=== PATIENT | male | born 1950 | race Caucasian/White ===

== ENCOUNTER 2024-09-14 09:37 | Day surgery (SDC) | payer MEDICARE, BC ==
[2024-09-10 13:33] LABS: BASOPHILS % (AUTO) 0.2 % (0-1); EOSINOPHILS # (AUTO) 0.1 X10'3 (0-0.9); EOSINOPHILS % (AUTO) 1.3 % (0-6); HEMATOCRIT 46.6 % (42.0-52.0); HEMOGLOBIN 15.9 g/dl (14.0-17.9); LYMPHOCYTES # (AUTO) 1.1 X10'3 (1.1-4.8); LYMPHOCYTES % (AUTO) 12.1 % (21-51); MEAN CORPUSCULAR HEMOGLOBIN 31.2 PG (27.0-31.0); MEAN CORPUSCULAR HGB CONC 34.2 g/dL (33.0-36.5); MEAN CORPUSCULAR VOLUME 91.5 FL (78-98); MEAN PLATELET VOLUME 9.3 FL (7.4-10.4); MONOCYTES # (AUTO) 0.9 X10'3 (0-0.9); MONOCYTES % (AUTO) 10.3 % (2-12); NEUTROPHILS # (AUTO) 6.8 X10'3 (1.8-7.7); NEUTROPHILS % (AUTO) 76.1 % (42-75); PLATELET COUNT 138 X10'3 (140-440); RED BLOOD COUNT 5.09 X10'6 (4.70-6.10); RED CELL DISTRIBUTION WIDTH 13.8 % (11.5-14.5)
[2024-09-10 13:42] LABS: APTT 24 SECONDS (22-32); INR 1.1 INR
[2024-09-10 13:43] LABS: ALBUMIN 3.9 G/DL (3.4-5.0); ANION GAP 5 (8-16); BLOOD UREA NITROGEN 30 MG/DL (7-18); BUN/CREATININE RATIO 27.5 (10.0-20.0); CALCIUM 9.2 MG/DL (8.5-10.1); CHLORIDE 104 MMOL/L (99-107); CHOL/HDL RATIO 2.2 (0.00-4.99); CHOLESTEROL 105 MG/DL (0-200); CREATININE 1.09 MG/DL (0.60-1.10); GLUCOSE 201 MG/DL (70-104); HDL CHOLESTEROL 47 MG/DL (35-60); LDL CHOLESTEROL 44 MG/DL (50-100); POTASSIUM 4.1 MMOL/L (3.5-5.1); SODIUM 141 MMOL/L (135-145); TOTAL CARBON DIOXIDE 32.5 MMOL/L (24-32); TRIGLYCERIDES 104 MG/DL (20-135); eGFR 66 ML/MIN
[2024-09-14] VITALS (7 sets, daily range): BP systolic 106–136; BP diastolic 54–82; PULSE 47–63; RESP 16; TEMP 97.2; O2SAT 94–99
[~2024-09-14] VITALS: Ht 170.2 cm; Wt 63.5 kg
[2024-09-14] MEDS ORDERED: normal saline 1,000 ML IV SCH (09:50)
[2024-09-14] MEDS ORDERED: diphenhydrAMINE 25mg capsule PO PRN (09:50)
[2024-09-14] MEDS ORDERED: LORazepam 0.5 MG tablet PO PRN (09:50)
[2024-09-14] MEDS ORDERED: ATOR40TA72 PO (10:33)
[2024-09-14] MEDS ORDERED: NITR0.4T48 SL (10:33)
[2024-09-14] MEDS ORDERED: LATA2.5D14 EACHEYE (10:33)
[2024-09-14] MEDS ORDERED: METO-395 PO (10:33)
[2024-09-14] MEDS ORDERED: DORZ10DR10 EACHEYE (10:33)
[2024-09-14] MEDS ORDERED: FLO0.4C PO (10:33)
[2024-09-14] MEDS ORDERED: AMLO5TAB16 PO (10:33)
[2024-09-14] MEDS ORDERED: LIDOcaine 1% (10mg/ml) 2ml vial ONE (10:39)
[2024-09-14] MEDS ORDERED: midazolam 1 mg/ML 2ml injection ONE (10:39)
[2024-09-14] MEDS ORDERED: verapamil 2.5 mg/ml inj IV ONE (10:39)
[2024-09-14] MEDS ORDERED: ASPI-611 PO (10:39)
[2024-09-14] MEDS ORDERED: fentaNYL/PF 50MCG/1 ML 2ML syringe ONE (10:39)
[2024-09-14] MEDS ORDERED: iohexol 350MG/ML 100ml bottle IV ONE (10:40)
[2024-09-14] MEDS ORDERED: heparin 1,000unit/ml 10ml vial 10 ML ONE (10:40)
[2024-09-14] MEDS ORDERED: CALC500T63 PO (10:41)
[2024-09-14] MEDS ORDERED: nitroGLYCERIN 500mcg/5mL D5W 5 ML IV ONE (10:44)
[2024-09-14] MEDS ORDERED: MULT-1085 PO (10:53)
== END 2024-09-14 14:45 | disposition home or self-care (01) ==
LOC: SSTAY O 09:37
PROVIDERS: ATTEND Student in an Organized Health Care Education/Training Program
DX: R94.39 Abnormal result of other cardiovascular function study (principal); I25.118 Atherosclerotic heart disease of native coronary artery with other forms of angina pectoris; R07.9 Chest pain, unspecified; E78.5 Hyperlipidemia, unspecified; I10 Essential (primary) hypertension; E11.9 Type 2 diabetes mellitus without complications; Z79.899 Other long term (current) drug therapy
CPT/HCPCS: 36415; 80048; 80061; 82948; 85025; 85610; 85730; 93005; 93458; 99152; 99153; A6258; A6402; C1894; J1644; J2003; J2250; J3010; J3490; J7030; Q9967; Z7610

== ENCOUNTER 2024-09-30 10:06 | Inpatient (IN) | payer MEDICARE, BC ==
[2024-09-28] MEDS: albuterol 2.5 MG/3 ML nebule NEB ONE (13:10)
[2024-09-28 14:16] LABS: ABG BASE EXCESS -2.9 mmol/L (-2.0-3.0); ABG HCO3 19.3 mmol/L (21.0-28.0); ABG OXYGEN SATURATION 97.4 % (94.0-98.0); ABG PH (T) 7.456 (7.350-7.450); ABG PO2 (T) 97.5 mmHg (83.0-108.0); ALLEN'S TEST POSITIVE; FCOHb 0.3 % (0.5-1.5); FHHb 2.6 % (0.0-5.0); FMetHb 0.3 % (0.0-1.5); FO2Hb 96.8 % (94.0-98.0)
[2024-09-28 14:39] LABS: BILIRUBIN,URINE NEGATIVE (Neg); CLARITY,URINE CLEAR (Clear); COLOR,URINE YELLOW (Yellow); GLUCOSE, URINE NEGATIVE (Neg); KETONES,URINE NEGATIVE (Neg); LEUKOCYTE ESTERASE ,URINE NEGATIVE (Neg); NITRITES, URINE NEGATIVE (Neg); OCCULT BLOOD,URINE NEGATIVE (Neg); PH,URINE 6.5 (4.8-8.0); PROTEIN,URINE NEGATIVE (Neg); UROBILINOGEN,URINE 0.2 E.U/dL (0.2-1.0)
[2024-09-28 14:41] LABS: UA COLLECTION TYPE NON-SPECIFIED
[2024-09-28 14:46] LABS: BASOPHILS % (AUTO) 0.4 % (0-1); EOSINOPHILS # (AUTO) 0.2 X10'3 (0-0.9); EOSINOPHILS % (AUTO) 3.8 % (0-6); LYMPHOCYTES # (AUTO) 1.3 X10'3 (1.1-4.8); LYMPHOCYTES % (AUTO) 22.3 % (21-51); MEAN CORPUSCULAR HEMOGLOBIN 31.2 PG (27.0-31.0); MEAN CORPUSCULAR VOLUME 91.6 FL (78-98); MEAN PLATELET VOLUME 9.4 FL (7.4-10.4); MONOCYTES # (AUTO) 0.7 X10'3 (0-0.9); MONOCYTES % (AUTO) 12.2 % (2-12); NEUTROPHILS # (AUTO) 3.6 X10'3 (1.8-7.7); NEUTROPHILS % (AUTO) 61.3 % (42-75); PRE OP HEMATOCRIT 47.5 % (42.0-52.0); PRE OP HEMOGLOBIN 16.2 g/dL (14.0-17.9); PRE OP PLATELET COUNT 145 X10'3 (140-440); PRE OP WHITE BLOOD COUNT 5.9 10'3 (4.8-10.8); RED BLOOD COUNT 5.19 X10'6 (4.70-6.10); RED CELL DISTRIBUTION WIDTH 13.3 % (11.5-14.5)
[2024-09-28 14:53] LABS: PRE OP PROTIME 10.7 SECONDS (9.0-12.0)
[2024-09-28 14:56] LABS: ALBUMIN 3.8 G/DL (3.4-5.0); ALKALINE PHOSPHATASE 76 IU/L (46-116); BLOOD UREA NITROGEN 23 MG/DL (7-18); BUN/CREATININE RATIO 23.5 (10.0-20.0); CALCIUM 8.8 MG/DL (8.5-10.1); CHLORIDE 106 MMOL/L (99-107); CREATININE 0.98 MG/DL (0.60-1.10); PRE OP ALT 29 U/L (30-65); PRE OP ANION GAP 5 (8-16); PRE OP AST 19 U/L (10-37); PRE OP BILIRUB, TOTAL 0.4 MG/DL (0.0-1.0); PRE OP GLUCOSE 152 MG/DL (70-104); PRE OP POTASSIUM 3.6 MMOL/L (3.4-5.1); PRE OP SODIUM 141 MMOL/L (135-145); TOTAL CARBON DIOXIDE 30.3 MMOL/L (24-32); TOTAL PROTEIN 7.8 G/DL (6.4-8.2); eGFR 75 ML/MIN
[2024-09-28 15:13] LABS: LARGE PLATELETS FEW; PLATELET ESTIMATE NORMAL
[2024-09-28 15:22] LABS: HEMOGLOBIN A1C 6.5 % (4.5-6.2)
[2024-09-30] VITALS (18 sets, daily range): BP systolic 96–150; BP diastolic 45–91; PULSE 62–89; RESP 12–16; TEMP 97.8; O2SAT 96–99
[~2024-09-30] VITALS: Ht 170.2 cm; Wt 64.1 kg
[2024-09-30] MEDS: LORazepam 1 MG tablet PO ONE (05:30)
[2024-09-30] MEDS: ceFAZolin 2gm in dextrose, iso 50 ML IV ONE (05:30)
[2024-09-30] MEDS: Insulin Reg/NS 100units/100mL 100 ML IV SCH ×2 (05:30→20:17)
[2024-09-30] MEDS: DOCUMENT DATE & TIME OF BETA-BLOCKER PO ONE (05:30)
[~2024-09-30 10:06] MED LIST: AMLO5TAB16 PO; ASPI-611 PO; ATOR40TA72 PO; DORZ10DR10 EACHEYE; FLO0.4C PO; LATA2.5D14 EACHEYE; METO-395 PO; dextrose 50%-water 50ml dispensing syringe IV PRN; insulin glargine (Lantus) pen - multi-dose SQ PRN
[2024-09-30] MEDS: famotidine 20mg tablet PO ONE (10:54)
[2024-09-30] MEDS: metoprolol tartrate 12.5mg (1/2 tablet) PO ONE (10:55)
[2024-09-30] MEDS: vancomycin/NS 1 GM ADD-VANTAGE 250 ML IV ONE (10:55)
[2024-09-30] MEDS: mupirocin 2% nasal ointment 1gm UD NS ONE (10:56)
[2024-09-30] MEDS: ringers solution, lacted 1,000 ML IV SCH (10:56)
[2024-09-30] MEDS ORDERED: ceFAZolin 1000mg inj ONE (13:16)
[2024-09-30] MEDS ORDERED: epiNEPHrine 1 mg/ml inj ONE (13:16)
[2024-09-30] MEDS ORDERED: ROPIVAcaine 0.5% (5mg/ml) 30ml vial ONE (13:16)
[2024-09-30] MEDS ORDERED: vancomycin 1,000mg inj ONE (13:18)
[2024-09-30] MEDS: ceFAZolin 1000mg inj IR ONE (14:30)
[2024-09-30] MEDS ORDERED: isoflurane 100ml inhalation liquid IH ONE (15:15)
[2024-09-30] MEDS ORDERED: LORazepam 2 mg/ml vial ONE (15:15)
[2024-09-30] MEDS ORDERED: midazolam 1 mg/ML 2ml injection ONE (15:16)
[2024-09-30] MEDS ORDERED: SUfentanil 50mcg/ml 1ml amp IV ONE (15:18)
[2024-09-30] MEDS ORDERED: rocuronium 10mg/ml inj IV ONE ×2 (15:21→18:18)
[2024-09-30] MEDS ORDERED: propofol inj 20 ML IV ONE (15:21)
[2024-09-30 15:51] LABS: ABG BASE EXCESS -1.1 mmol/L (-2.0-3.0); ABG HCO3 21.4 mmol/L (21.0-28.0); ABG OXYGEN SATURATION 99.3 % (94.0-98.0); ABG PCO2 30.2 mmHg (35.0-48.0); ABG PH 7.469 (7.350-7.450); ABG PO2 226.8 mmHg (83.0-108.0); CL (ABG) 108 mmol/L (98-107); FCOHb 0.1 % (0.5-1.5); FHHb 0.7 % (0.0-5.0); FMetHb 0.1 % (0.0-1.5); FO2Hb 99.1 % (94.0-98.0); GLUCOSE (ABG) 116 mg/dl (65-95); IONIZED CA (ABG) 1.18 mmol/L (1.15-1.33); K (ABG) 3.5 mmol/L (3.40-4.50); TOTAL HEMOGLOBIN 14.5 G/dl (13.5-17.5)
[2024-09-30] MEDS: papaverine 30 mg/ml 2ml inj. IA ONE (16:39)
[2024-09-30 16:59] LABS: ABG BASE EXCESS -1.2 mmol/L (-2.0-3.0); ABG HCO3 22.3 mmol/L (21.0-28.0); ABG OXYGEN SATURATION 99.3 % (94.0-98.0); ABG PCO2 32.7 mmHg (35.0-48.0); ABG PH 7.452 (7.350-7.450); CL (ABG) 104 mmol/L (98-107); FCOHb 0.3 % (0.5-1.5); FHHb 0.7 % (0.0-5.0); FMetHb 0.1 % (0.0-1.5); FO2Hb 98.9 % (94.0-98.0); GLUCOSE (ABG) 119 mg/dl (65-95); IONIZED CA (ABG) 0.97 mmol/L (1.15-1.33); K (ABG) 3.5 mmol/L (3.40-4.50); TOTAL HEMOGLOBIN 9.8 G/dl (13.5-17.5)
[2024-09-30 17:21] LABS: ABG BASE EXCESS VENOUS -1.3 mmol/L (-2.0-3.0); ABG HCO3 VENOUS 24.4 mmol/L (22.0-29.0); ABG OXYGEN SATURATION VENOUS 85.2 % (60.0-85.0); ABG PCO2 VENOUS 45.2 mmHg (38.0-54.0); ABG PO2 VENOUS 51.2 mmHg (23.0-48.0); CL (ABG) 103 mmol/L (98-107); FCOHb VENOUS 0.3 % (0.5-1.5); FHHb VENOUS 14.7 %; FMetHb VENOUS 0.3 % (0.5-1.5); FO2Hb VENOUS 84.7 % (0-80.0); GLUCOSE (ABG) 120 mg/dl (65-95); IONIZED CA (ABG) 1.01 mmol/L (1.15-1.33); K (ABG) 3.9 mmol/L (3.40-4.50); TOTAL HEMOGLOBIN 10.4 G/dl (13.5-17.5)
[2024-09-30 17:41] LABS: ABG BASE EXCESS 0.2 mmol/L (-2.0-3.0); ABG HCO3 25.4 mmol/L (21.0-28.0); ABG OXYGEN SATURATION 99.4 % (94.0-98.0); ABG PCO2 43.6 mmHg (35.0-48.0); ABG PH 7.383 (7.350-7.450); CL (ABG) 104 mmol/L (98-107); FCOHb 0.3 % (0.5-1.5); FHHb 0.6 % (0.0-5.0); FMetHb 0.3 % (0.0-1.5); FO2Hb 98.8 % (94.0-98.0); GLUCOSE (ABG) 129 mg/dl (65-95); IONIZED CA (ABG) 1.03 mmol/L (1.15-1.33); K (ABG) 3.8 mmol/L (3.40-4.50); TOTAL HEMOGLOBIN 10.9 G/dl (13.5-17.5)
[2024-09-30 18:10] LABS: ABG BASE EXCESS -2.5 mmol/L (-2.0-3.0); ABG HCO3 21.2 mmol/L (21.0-28.0); ABG OXYGEN SATURATION 99.1 % (94.0-98.0); ABG PCO2 32.7 mmHg (35.0-48.0); ABG PO2 281.2 mmHg (83.0-108.0); CL (ABG) 104 mmol/L (98-107); FCOHb 0.3 % (0.5-1.5); FHHb 0.9 % (0.0-5.0); FMetHb 0.3 % (0.0-1.5); FO2Hb 98.5 % (94.0-98.0); GLUCOSE (ABG) 113 mg/dl (65-95); IONIZED CA (ABG) 1.27 mmol/L (1.15-1.33); K (ABG) 3.6 mmol/L (3.40-4.50); TOTAL HEMOGLOBIN 10.5 G/dl (13.5-17.5)
[2024-09-30] MEDS ORDERED: ipratropium/albuterol 3ml nebule IH PRN (18:10)
[2024-09-30 18:14] LABS: ACTIVATED CLOTTING TIME 123 SEC (101-148)
[2024-09-30] MEDS ORDERED: potassium Cl 40MEQ/270ML bag 250 ML IV PRN (18:40)
[2024-09-30] MEDS ORDERED: metoclopramide 5 mg/ml inj IV PRN (18:40)
[2024-09-30] MEDS ORDERED: insulin glargine (Lantus) pen - multi-dose SQ PRN (18:40)
[2024-09-30] MEDS ORDERED: mineral oil 133ml enema RC PRN (18:40)
[2024-09-30] MEDS ORDERED: ondansetron/PF 4mg/2ml inj IV PRN (18:40)
[2024-09-30] MEDS ORDERED: dextrose 50%-water 50ml dispensing syringe IV PRN (18:40)
[2024-09-30] MEDS ORDERED: potassium CL 10mEq/100ml bag 100 ML IV PRN (18:40)
[2024-09-30] MEDS ORDERED: morphine 4 MG/ML inj SYRINge IV PRN (18:40)
[2024-09-30] MEDS ORDERED: niCARDipine-NS 40mg/200ml IVPB 200 ML IV PRN (18:40)
[2024-09-30] MEDS ORDERED: acetaminophen 325mg tablet PO PRN (18:40)
[2024-09-30] MEDS ORDERED: magnesium sulf-water 4G/100mL 100 ML IV PRN (18:40)
[2024-09-30] MEDS ORDERED: sodium phosphate inj. 15 MMOL in normal saline 250ml IV soln 250 ML IV PRN (18:40)
[2024-09-30 19:07] LABS: BASOPHILS % (AUTO) 0.2 % (0-1); EOSINOPHILS # (AUTO) 0.1 X10'3 (0-0.9); EOSINOPHILS % (AUTO) 0.7 % (0-6); HEMATOCRIT 33.8 % (42.0-52.0); HEMOGLOBIN 11.4 g/dl (14.0-17.9); LYMPHOCYTES # (AUTO) 0.6 X10'3 (1.1-4.8); LYMPHOCYTES % (AUTO) 5.6 % (21-51); MEAN CORPUSCULAR HEMOGLOBIN 31.2 PG (27.0-31.0); MEAN CORPUSCULAR HGB CONC 33.8 g/dL (33.0-36.5); MEAN CORPUSCULAR VOLUME 92.5 FL (78-98); MEAN PLATELET VOLUME 9.5 FL (7.4-10.4); MONOCYTES # (AUTO) 0.9 X10'3 (0-0.9); MONOCYTES % (AUTO) 8.6 % (2-12); NEUTROPHILS # (AUTO) 8.8 X10'3 (1.8-7.7); NEUTROPHILS % (AUTO) 84.9 % (42-75); PLATELET COUNT 70 X10'3 (140-440); RED BLOOD COUNT 3.66 X10'6 (4.70-6.10); RED CELL DISTRIBUTION WIDTH 13.4 % (11.5-14.5); WHITE BLOOD COUNT 10.4 X10'3 (4.5-11.0)
[2024-09-30] MEDS: sodium chloride 0.45% 1,000 ML IV SCH (19:16)
[2024-09-30] MEDS: albumin (Human) 5% 250ml 250 ML IV PRN (19:17)
[2024-09-30 19:20] LABS: INR 1.3 INR; PROTHROMBIN TIME 13.3 SECONDS (9.0-12.0)
[2024-09-30 19:23] LABS: ABG BASE EXCESS -2.7 mmol/L (-2.0-3.0); ABG HCO3 21.1 mmol/L (21.0-28.0); ABG OXYGEN SATURATION 99.2 % (94.0-98.0); ABG PCO2 (T) 31.6 mmHg (35.0-48.0); ABG PH (T) 7.437 (7.350-7.450); ABG PO2 (T) 173.1 mmHg (83.0-108.0); FCOHb 0.4 % (0.5-1.5); FHHb 0.8 % (0.0-5.0); FMetHb 0.3 % (0.0-1.5); FO2Hb 98.5 % (94.0-98.0); MODE VENT - SIMV; PATIENT TEMPERATURE 35.7; PEEP 5 cm H2O; RESPIRATORY RATE 12 b/min; TIDAL VOLUME 500 mL; TOTAL HEMOGLOBIN 12.6 G/dl (13.5-17.5)
[2024-09-30 19:23] LABS: ALANINE AMINOTRANSFERASE 21 U/L (12-78); ALBUMIN 2.5 G/DL (3.4-5.0); ALBUMIN/GLOBULIN RATIO 1.3 (1.1-1.5); ALKALINE PHOSPHATASE 35 IU/L (46-116); ANION GAP 9 (8-16); APTT 26 SECONDS (22-32); ASPARTATE AMINO TRANSFERASE 27 U/L (10-37); BILIRUBIN,TOTAL 0.5 MG/DL (0.1-1.0); BLOOD UREA NITROGEN 18 MG/DL (7-18); BUN/CREATININE RATIO 20.9 (10.0-20.0); CALCIUM 7.5 MG/DL (8.5-10.1); CHLORIDE 112 MMOL/L (99-107); CREATININE 0.86 MG/DL (0.60-1.10); GLUCOSE 107 MG/DL (70-104); MAGNESIUM 2.3 MG/DL (1.5-2.4); PHOSPHORUS 1.5 MG/DL (2.3-4.5); POTASSIUM 3.3 MMOL/L (3.5-5.1); SODIUM 146 MMOL/L (135-145); TOTAL CARBON DIOXIDE 25.2 MMOL/L (24-32); TOTAL PROTEIN 4.5 G/DL (6.4-8.2); eCRCL 67 ML/MIN; eGFR 87 ML/MIN
[2024-09-30] MEDS: nitroGLYCERIN-Tridil 50MG/D5W 250 ML IV SCH (19:23)
[2024-09-30] MEDS: potassium Cl 20mEq/100mL bag 100 ML IV PRN (19:52)
[2024-09-30] MEDS: magnesium sulf-water 2g/50mL 50 ML IV PRN (19:53)
[2024-09-30] MEDS: sennosides/docusate sodium tablet PO SCH (20:00)
[2024-09-30] MEDS: atorvastatin 10mg tablet PO SCH (20:11)
[2024-09-30] MEDS: vancomycin/NS 1 GM ADD-VANTAGE 250 ML IV SCH (20:11)
[2024-09-30] MEDS: mupirocin 2% nasal ointment 1gm UD NS SCH (20:11)
[2024-09-30] MEDS: sodium phosphate inj. 30 MMOL in normal saline 250ml IV soln 250 ML IV PRN (20:45)
[2024-09-30] MEDS: morphine 2 MG/ML inj. syringe IV PRN (20:46)
[2024-09-30] MEDS: ceFAZolin/D5W- 1GM premix 50 ML IV SCH (23:08)
[2024-10-01] VITALS (29 sets, daily range): BP systolic 94–144; BP diastolic 43–77; PULSE 69–90; RESP 13–28; O2SAT 91–98
[2024-10-01 01:06] LABS: ABG BASE EXCESS -6.8 mmol/L (-2.0-3.0); ABG HCO3 18.2 mmol/L (21.0-28.0); ABG OXYGEN SATURATION 97.3 % (94.0-98.0); ABG PCO2 (T) 34.1 mmHg (35.0-48.0); ABG PH (T) 7.342 (7.350-7.450); ABG PO2 (T) 98.7 mmHg (83.0-108.0); FHHb 2.7 % (0.0-5.0); FMetHb 0.3 % (0.0-1.5); MODE VENT - CPAP; PATIENT TEMPERATURE 36.7; TOTAL HEMOGLOBIN 11.9 G/dl (13.5-17.5)
[2024-10-01 02:18] LABS: BASOPHILS % (AUTO) 0 % (0-1); EOSINOPHILS % (AUTO) 0 % (0-6); HEMATOCRIT 33.7 % (42.0-52.0); HEMOGLOBIN 11.2 g/dl (14.0-17.9); LYMPHOCYTES # (AUTO) 0.3 X10'3 (1.1-4.8); LYMPHOCYTES % (AUTO) 2.5 % (21-51); MEAN CORPUSCULAR HEMOGLOBIN 30.7 PG (27.0-31.0); MEAN CORPUSCULAR HGB CONC 33.4 g/dL (33.0-36.5); MEAN CORPUSCULAR VOLUME 92.1 FL (78-98); MEAN PLATELET VOLUME 9.6 FL (7.4-10.4); MONOCYTES # (AUTO) 0.7 X10'3 (0-0.9); MONOCYTES % (AUTO) 5.2 % (2-12); NEUTROPHILS # (AUTO) 12.3 X10'3 (1.8-7.7); NEUTROPHILS % (AUTO) 92.3 % (42-75); PLATELET COUNT 80 X10'3 (140-440); RED BLOOD COUNT 3.66 X10'6 (4.70-6.10); RED CELL DISTRIBUTION WIDTH 13.5 % (11.5-14.5); WHITE BLOOD COUNT 13.3 X10'3 (4.5-11.0)
[2024-10-01 02:51] LABS: ALANINE AMINOTRANSFERASE 22 U/L (12-78); ALBUMIN 3.7 G/DL (3.4-5.0); ALBUMIN/GLOBULIN RATIO 1.7 (1.1-1.5); ALKALINE PHOSPHATASE 36 IU/L (46-116); ANION GAP 14 (8-16); ASPARTATE AMINO TRANSFERASE 30 U/L (10-37); BILIRUBIN,TOTAL 0.8 MG/DL (0.1-1.0); BLOOD UREA NITROGEN 18 MG/DL (7-18); BUN/CREATININE RATIO 14.1 (10.0-20.0); CALCIUM 7.9 MG/DL (8.5-10.1); CHLORIDE 112 MMOL/L (99-107); CREATININE 1.28 MG/DL (0.60-1.10); GLUCOSE 178 MG/DL (70-104); MAGNESIUM 2.3 MG/DL (1.5-2.4); PHOSPHORUS 3.6 MG/DL (2.3-4.5); POTASSIUM 3.9 MMOL/L (3.5-5.1); SODIUM 147 MMOL/L (135-145); TOTAL CARBON DIOXIDE 20.9 MMOL/L (24-32); TOTAL PROTEIN 5.9 G/DL (6.4-8.2); eCRCL 45 ML/MIN; eGFR 55 ML/MIN
[2024-10-01 03:04] LABS: APTT 27 SECONDS (22-32); INR 1.2 INR; PROTHROMBIN TIME 12.3 SECONDS (9.0-12.0)
[2024-10-01] MEDS: aspirin 81mg tab.chew PO SCH (07:34)
[2024-10-01] MEDS: metoprolol tartrate 12.5mg (1/2 tablet) PO SCH (08:00)
[2024-10-01] MEDS: tamsulosin 0.4mg capsule PO SCH (08:30)
[2024-10-01] MEDS: dorzolamide/timolol (Cosopt) ophthalmic drops 10ml bottle EACHEYE SCH (09:19)
[2024-10-01] MEDS: latanoprost 0.005% 2.5ml ophthalmic drops EACHEYE SCH (09:19)
[2024-10-01 10:41] LABS: ABG PO2 496.1 mmHg (83.0-108.0)
[2024-10-01 10:41] LABS: ABG PO2 438.2 mmHg (83.0-108.0)
[2024-10-01] MEDS ORDERED: dextrose 50%-water 50ml dispensing syringe IV PRN ×2 (13:35)
[2024-10-01] MEDS ORDERED: DEXTROSE 15 GM of carb/4 tabs (each vial/BOTTLE has 4 tablets) PO PRN ×2 (13:35)
[2024-10-01] MEDS ORDERED: glucagon, human recombinant 1mg kit SUBCUT PRN (13:35)
[2024-10-01] MEDS: HYDROcodone/acetaminophen 10/325mg tab PO PRN ×2 (14:04→23:17)
[2024-10-01] MEDS: INSULIN LISPRO 100 UNIT/ML INSULN.PEN MULTI-DOSE SQ SCH (18:57)
[2024-10-02] VITALS (20 sets, daily range): BP systolic 109–150; BP diastolic 66–90; PULSE 72–115; RESP 15–27; TEMP 97.5–98; O2SAT 94–98
[2024-10-02 02:37] LABS: BASOPHILS % (AUTO) 0 % (0-1); EOSINOPHILS % (AUTO) 0 % (0-6); HEMATOCRIT 32.8 % (42.0-52.0); LYMPHOCYTES # (AUTO) 0.5 X10'3 (1.1-4.8); MEAN CORPUSCULAR HGB CONC 33.6 g/dL (33.0-36.5); MONOCYTES # (AUTO) 2.4 X10'3 (0-0.9); NEUTROPHILS % (AUTO) 86.5 % (42-75); RED BLOOD COUNT 3.56 X10'6 (4.70-6.10); RED CELL DISTRIBUTION WIDTH 13.9 % (11.5-14.5)
[2024-10-02 02:40] LABS: LYMPHOCYTES % (AUTO) 2.4 % (21-51); MEAN CORPUSCULAR HEMOGLOBIN 30.9 PG (27.0-31.0); MEAN CORPUSCULAR VOLUME 92.1 FL (78-98); MEAN PLATELET VOLUME 10.3 FL (7.4-10.4); MONOCYTES % (AUTO) 11.1 % (2-12); NEUTROPHILS # (AUTO) 18.8 X10'3 (1.8-7.7); PLATELET COUNT 66 X10'3 (140-440); WHITE BLOOD COUNT 21.8 X10'3 (4.5-11.0)
[2024-10-02 02:48] LABS: ALBUMIN 3.4 G/DL (3.4-5.0); ANION GAP 6 (8-16); BLOOD UREA NITROGEN 23 MG/DL (7-18); BUN/CREATININE RATIO 26.4 (10.0-20.0); CALCIUM 8.4 MG/DL (8.5-10.1); CHLORIDE 107 MMOL/L (99-107); CREATININE 0.87 MG/DL (0.60-1.10); GLUCOSE 233 MG/DL (70-104); MAGNESIUM 2.2 MG/DL (1.5-2.4); POTASSIUM 4.5 MMOL/L (3.5-5.1); SODIUM 141 MMOL/L (135-145); TOTAL CARBON DIOXIDE 27.8 MMOL/L (24-32); eCRCL 67 ML/MIN; eGFR 86 ML/MIN
[2024-10-02] MEDS: pantoprazole 40mg Tablet.DR PO SCH (07:29)
[2024-10-02] MEDS: metoprolol tartrate 12.5mg (1/2 tablet) PO ONE (09:47)
[2024-10-02] MEDS: furosemide 40mg/4ml inj IV ONE (10:35)
[2024-10-02] MEDS: albumin (Human) 5% 250ml 250 ML IV ONE (12:54)
[2024-10-02] MEDS: magnesium hydroxide 30ml (MOM) UD suspension PO PRN (14:28)
[2024-10-02] MEDS: metoprolol tartrate 25mg tablet PO SCH (19:49)
[2024-10-02] MEDS: heparin, porcine 5000 units/ml vial SQ SCH (19:55)
[2024-10-03] VITALS (9 sets, daily range): BP systolic 115–157; BP diastolic 68–93; PULSE 88–112; RESP 16–26; TEMP 97.1–98.5; O2SAT 94–98
[2024-10-03 04:00] LABS: ALBUMIN 3.2 G/DL (3.4-5.0); ANION GAP 4 (8-16); BLOOD UREA NITROGEN 30 MG/DL (7-18); BUN/CREATININE RATIO 42.9 (10.0-20.0); CALCIUM 8.6 MG/DL (8.5-10.1); CHLORIDE 104 MMOL/L (99-107); GLUCOSE 229 MG/DL (70-104); MAGNESIUM 1.9 MG/DL (1.5-2.4); PHOSPHORUS 1.8 MG/DL (2.3-4.5); SODIUM 140 MMOL/L (135-145); TOTAL CARBON DIOXIDE 31.8 MMOL/L (24-32); eCRCL 83 ML/MIN; eGFR > 90 ML/MIN
[2024-10-03] MEDS: bisacodyl 10mg suppository rectal RC PRN (05:31)
[2024-10-03 07:02] LABS: EOSINOPHILS % (AUTO) 0 % (0-6); HEMOGLOBIN 11.9 g/dl (14.0-17.9); MONOCYTES # (AUTO) 2.3 X10'3 (0-0.9); PLATELET COUNT 63 X10'3 (140-440)
[2024-10-03 07:04] LABS: BASOPHILS % (AUTO) 0 % (0-1); HEMATOCRIT 36.1 % (42.0-52.0); LYMPHOCYTES # (AUTO) 1.5 X10'3 (1.1-4.8); LYMPHOCYTES % (AUTO) 7.8 % (21-51); MEAN CORPUSCULAR HEMOGLOBIN 30.6 PG (27.0-31.0); MEAN CORPUSCULAR HGB CONC 33.1 g/dL (33.0-36.5); MEAN CORPUSCULAR VOLUME 92.5 FL (78-98); MEAN PLATELET VOLUME 9.9 FL (7.4-10.4); MONOCYTES % (AUTO) 11.8 % (2-12); NEUTROPHILS # (AUTO) 15.6 X10'3 (1.8-7.7); NEUTROPHILS % (AUTO) 80.4 % (42-75); RED CELL DISTRIBUTION WIDTH 13.8 % (11.5-14.5); WHITE BLOOD COUNT 19.4 X10'3 (4.5-11.0)
[2024-10-03] MEDS: Neutra Phos packet PO PRN (07:55)
[2024-10-03] MEDS: insulin glargine (Lantus) pen - multi-dose SQ SCH (20:33)
[2024-10-03] MEDS: metoprolol tartrate 50mg tablet PO SCH (20:55)
[2024-10-04] VITALS (7 sets, daily range): BP systolic 103–168; BP diastolic 60–89; PULSE 74–97; RESP 16–26; TEMP 97.4–99.2; O2SAT 93–96
[2024-10-04 07:46] LABS: BASOPHILS % (AUTO) 0 % (0-1); EOSINOPHILS % (AUTO) 0.1 % (0-6); HEMATOCRIT 32.8 % (42.0-52.0); HEMOGLOBIN 10.8 g/dl (14.0-17.9); LYMPHOCYTES # (AUTO) 1.2 X10'3 (1.1-4.8); LYMPHOCYTES % (AUTO) 8.9 % (21-51); MEAN CORPUSCULAR HEMOGLOBIN 30.5 PG (27.0-31.0); MEAN CORPUSCULAR HGB CONC 33.1 g/dL (33.0-36.5); MEAN CORPUSCULAR VOLUME 92.4 FL (78-98); MEAN PLATELET VOLUME 10.2 FL (7.4-10.4); MONOCYTES # (AUTO) 1.6 X10'3 (0-0.9); MONOCYTES % (AUTO) 12.6 % (2-12); NEUTROPHILS # (AUTO) 10.2 X10'3 (1.8-7.7); NEUTROPHILS % (AUTO) 78.4 % (42-75); PLATELET COUNT 62 X10'3 (140-440); RED BLOOD COUNT 3.55 X10'6 (4.70-6.10); RED CELL DISTRIBUTION WIDTH 13.7 % (11.5-14.5); WHITE BLOOD COUNT 13.1 X10'3 (4.5-11.0)
[2024-10-04 08:09] LABS: ALBUMIN 2.8 G/DL (3.4-5.0); ANION GAP 9 (8-16); BLOOD UREA NITROGEN 23 MG/DL (7-18); BUN/CREATININE RATIO 31.5 (10.0-20.0); CALCIUM 8.4 MG/DL (8.5-10.1); CHLORIDE 103 MMOL/L (99-107); CREATININE 0.73 MG/DL (0.60-1.10); GLUCOSE 187 MG/DL (70-104); MAGNESIUM 1.9 MG/DL (1.5-2.4); PHOSPHORUS 2.5 MG/DL (2.3-4.5); POTASSIUM 3.4 MMOL/L (3.5-5.1); SODIUM 141 MMOL/L (135-145); TOTAL CARBON DIOXIDE 28.8 MMOL/L (24-32); eCRCL 79 ML/MIN; eGFR > 90 ML/MIN
[2024-10-04] MEDS: acetaminophen 325mg tablet PO PRN (08:41)
[2024-10-04] MEDS: potassium Cl 40MEQ/1/2NS 520ml 520 ML IV PRN (12:39)
[2024-10-04] MEDS: JUVEN Smoothie Arginine/Glut./Ca2+Bmb (Juven 19.3pkt) 240ml cup PO SCH (18:00)
[2024-10-04] MEDS ORDERED: HYDR-3972 PO (18:24)
[2024-10-04] MEDS ORDERED: METF-436 PO (18:24)
[2024-10-04] MEDS ORDERED: METO50TA16 PO (18:24)
[2024-10-05 02:00] VITALS: BP 128/76; PULSE 87; RESP 21; TEMP 97.1; O2SAT 95
[2024-10-05 06:00] VITALS: BP 136/81; PULSE 76; RESP 17; TEMP 98.1; O2SAT 99
[2024-10-05 07:14] LABS: BASOPHILS % (AUTO) 0.1 % (0-1); EOSINOPHILS # (AUTO) 0.1 X10'3 (0-0.9); HEMATOCRIT 32.5 % (42.0-52.0); HEMOGLOBIN 10.8 g/dl (14.0-17.9); LYMPHOCYTES # (AUTO) 1.4 X10'3 (1.1-4.8); LYMPHOCYTES % (AUTO) 12.9 % (21-51); MEAN CORPUSCULAR HEMOGLOBIN 30.9 PG (27.0-31.0); MEAN CORPUSCULAR HGB CONC 33.2 g/dL (33.0-36.5); MEAN CORPUSCULAR VOLUME 92.9 FL (78-98); MEAN PLATELET VOLUME 10.9 FL (7.4-10.4); MONOCYTES # (AUTO) 1.6 X10'3 (0-0.9); MONOCYTES % (AUTO) 15.1 % (2-12); NEUTROPHILS # (AUTO) 7.5 X10'3 (1.8-7.7); NEUTROPHILS % (AUTO) 70.9 % (42-75); PLATELET COUNT 83 X10'3 (140-440); RED CELL DISTRIBUTION WIDTH 13.5 % (11.5-14.5); WHITE BLOOD COUNT 10.6 X10'3 (4.5-11.0)
[2024-10-05 07:58] VITALS: BP_SYST 136; PULSE 76
[2024-10-05 08:07] LABS: ALANINE AMINOTRANSFERASE 49 U/L (12-78); ALBUMIN 2.5 G/DL (3.4-5.0); ALBUMIN/GLOBULIN RATIO 0.8 (1.1-1.5); ALKALINE PHOSPHATASE 71 IU/L (46-116); ANION GAP 7 (8-16); ASPARTATE AMINO TRANSFERASE 37 U/L (10-37); BILIRUBIN,TOTAL 0.6 MG/DL (0.1-1.0); BLOOD UREA NITROGEN 19 MG/DL (7-18); BUN/CREATININE RATIO 24.7 (10.0-20.0); CALCIUM 8.5 MG/DL (8.5-10.1); CHLORIDE 107 MMOL/L (99-107); CREATININE 0.77 MG/DL (0.60-1.10); GLUCOSE 146 MG/DL (70-104); MAGNESIUM 1.9 MG/DL (1.5-2.4); PHOSPHORUS 2.8 MG/DL (2.3-4.5); POTASSIUM 3.8 MMOL/L (3.5-5.1); SODIUM 141 MMOL/L (135-145); TOTAL CARBON DIOXIDE 26.6 MMOL/L (24-32); TOTAL PROTEIN 5.8 G/DL (6.4-8.2); eCRCL 75 ML/MIN; eGFR > 90 ML/MIN
[2024-10-05] MEDS: potassium Cl 20 mEq SR tablet PO PRN (09:27)
[2024-10-05 10:26] LABS: ACT @ 1.70 U 273 SEC (193-297); ACT @ 2.84 U 357 SEC (260-420); BASELINE ACT 131 SEC (101-148); PATIENT WEIGHT 65.0k KG
== END 2024-10-05 11:30 | disposition home health service (06) | DRG 235 ==
LOC: PAS IN 10:06 → CICU 2S 17:30 → PCU 3S 10-02 16:41
PROVIDERS: ADMIT Thoracic Surgery (Cardiothoracic Vascular Surgery); ATTEND Thoracic Surgery (Cardiothoracic Vascular Surgery)
PROC: 06BP4ZZ Excision of Right Saphenous Vein, Percutaneous Endoscopic Approach (ICD-10-PCS; 2024-09-30)
PROC: 02100Z9 Bypass Coronary Artery, One Artery from Left Internal Mammary, Open Approach (ICD-10-PCS; 2024-09-30)
PROC: 5A1221Z Performance of Cardiac Output, Continuous (ICD-10-PCS; 2024-09-30)
PROC: B24BZZ4 Ultrasonography of Heart with Aorta, Transesophageal (ICD-10-PCS; 2024-09-30)
PROC: 05HY33Z Insertion of Infusion Device into Upper Vein, Percutaneous Approach (ICD-10-PCS; 2024-09-30)
PROC: 021109W Bypass Coronary Artery, Two Arteries from Aorta with Autologous Venous Tissue, Open Approach (ICD-10-PCS; principal; 2024-09-30 15:15)
DX: I25.10 Atherosclerotic heart disease of native coronary artery without angina pectoris (principal); N17.0 Acute kidney failure with tubular necrosis; I10 Essential (primary) hypertension; D69.6 Thrombocytopenia, unspecified; E78.5 Hyperlipidemia, unspecified; E87.70 Fluid overload, unspecified
CPT/HCPCS: 36415; 36600; 71045; 71046; 80048; 80053; 81003; 82330; 82435; 82803; 82947; 82948; 83036; 83735; 84100; 84132; 84295; 84484; 85008; 85018; 85025; 85347; 85610; 85730; 86885; 86900; 86901; 86920; 87070; 87081; 93005; 93312; 93325; 93970; 94002; 94003; 94010; 94640; 94668; 94760; 97116; 97161; 97530; A4615; A4618; A6213; A6258; A6449; A7000; A7048; C1751; G0378; J0171; J0665; J0690; J1644; J1815; J1940; J2003; J2060; J2150; J2250; J2270; J2440; J2704; J2720; J2795; J2919; J3370; J3480; J3490; J7030; J7040; J7050; J7120; P9045; P9047

== ENCOUNTER 2024-10-19 12:20 | Day surgery (SDC) | payer MEDICARE, BC ==
[~2024-10-19 12:20] MED LIST changes: -AMLO5TAB16 PO; -FLO0.4C PO; +HYDR-3972 PO; +METF-436 PO; -METO-395 PO; +METO50TA16 PO; +TAMS-55 PO; -dextrose 50%-water 50ml dispensing syringe IV PRN; -insulin glargine (Lantus) pen - multi-dose SQ PRN
--- NOTE | 2024-10-19 12:38 | RADIOLOGY REPORT ---
EXAM: DI CHEST,SINGLE VIEW Indication: LT PLEURAL EFFUSION S/P CABG Technique: Single frontal view of the chest was obtained Comparison: DI CHEST,SINGLE VIEW on DOS: 10/03/24, DI CHEST,SINGLE VIEW on DOS: 10/02/24, DI CHEST,SING LE VIEW on DOS: 10/01/24, DI CHEST,SINGLE VIEW on DOS: 09/30/24 FINDINGS: Lines and Tubes: None Lungs: Moderate left pleural effusion and left basilar opacity. Cardiomediastinal contours: Obscured. Bones: No acute osseous abnormality. IMPRESSION: Moderate left pleural effusion and left basilar opacity.
[2024-10-19 12:50] VITALS: BP 153/88; PULSE 81; RESP 16; TEMP 98; O2SAT 96
[2024-10-19] MEDS ORDERED: METO-395 PO (12:54)
[2024-10-19] MEDS ORDERED: METF-1203 PO (12:56)
[2024-10-19 13:16] VITALS: BP 141/80; PULSE 74; RESP 14; O2SAT 96
[2024-10-19 13:45] VITALS: BP 142/84; PULSE 76; RESP 16; O2SAT 97
[2024-10-19 14:00] VITALS: BP 134/82; PULSE 72; RESP 16; O2SAT 97
--- NOTE | 2024-10-19 14:33 | RADIOLOGY REPORT ---
EXAM: DI CHEST,SINGLE VIEW TECHNIQUE: Single frontal chest radiograph CLINICAL HISTORY: S/P THORA COMPARISON: DI CHEST,SINGLE VIEW on DOS: 10/19/24, DI CHEST,SINGLE VIEW on DOS: 10/03/24, DI CHEST,SINGL E VIEW on DOS: 10/02/24 Findings/Impression: Frontal chest radiograph demonstrates no acute osseous or superficial soft tissue abnormalities. The trachea is midline. The cardiac silhouette and mediastinum are within normal limits. Small residual left pleural effusion with compressive atelectasis. A superimposed infectious process is not excluded. No definite pneumothorax.
--- NOTE | 2024-10-19 15:19 | PROCEDURE NOTE- Residance ---
Procedure Note Providers to CC CC: GRICEL CRUZ, RES ~ Planned Procedure Right sided thoracentesis Indications shortness of breath Survey Supervisor Gricel Cruz - Resident, suprvised by Dr. Miller Type of Anesthesia Lidocaine 1% Informed Consent During the informed consent discussion regarding the procedure, or treatment, I explained the following to the patient: a. Nature of the procedure or treatment and who will perform the procedure or treatment. b. Necessity for procedure and the possible benefits. c. Risks and complications (most common and serious). d. Alternative treatments and the risks, benefits and side effects of each (including no treatment). e. Likelihood of the patient achieving his/her goals without this procedure and surgery treatment. f. Problems that might occur during the recuperation. Description A time out was performed and the chest x-ray was reviewed, the appropriate side was confirmed and marked. My hands were washed immediately prior to the procedure. I wore a surgical cap, mask with protective eyewear, sterile gown and sterile gloves throughout the procedure. The patient was prepped and draped in a sterile manner using chlorhexidine scrub after the appropriate level was percussed and confirmed by ultrasound. 1% lidocaine was used to anesthesize the skin, subcutaneous tissue, superior aspect of the rib periosteum and parietal pleura. A finder needle was then introduced over the superior aspect of the rib to locate the pleural fluid; _ colored fluid was aspirated at a depth of approximately _ cm. A 10-blade scalpel was used to gabriel the skin at the in sertion site. The [id number]-[id number] needle was then introduced through the skin incision into the pleural space using negative aspiration pressure and the red colormetric indicator to confirm appropriate positioning of the needle. The thoracentesis catheter was then threaded without difficulty. 1000 ml of Serosanguinous fluid was removed without difficulty. The catheter was then removed. No immediate complications were noted during the procedure. A post- procedure chest x-ray done, showed no pneumothorax. Estimated blood loss is 0.1 cc. Estimated Blood Loss very minimal; 0.1 cc Complication none X-Ray Findings Frontal chest radiograph demonstrates no acute osseous or superficial soft tissu e abnormalities. The trachea is midline. The cardiac silhouette and mediastinum are within normal limits. Small residual left pleural effusion with compressive atelectasis. A superimposed infectious process is not excluded. No definite pneumothorax. Date of Service: Oct 19, 2024 Billing Provider: MIGUEL MILLER MD, SHAMS, RES Oct 19, 2024 15:19
--- NOTE | 2024-10-19 15:38 | RADIOLOGY REPORT ---
PROCEDURE: ULTRASOUND GUIDED THORACENTESIS USING TEMPORARY CATHETER HISTORY: 74 Male with sob requiring thoracentesis. DOCUMENTATION: Informed consent was obtained and a procedural time out was performed. TECHNIQUE: Ultrasound was used to locate the LEFT pleural fluid collection with an image archived in the PACS. The skin over the LEFT posterior hemithorax was sterilely prepped, draped, and infiltrated with 1% lidocaine. Under real time ultrasound guidance, the LEFT pleural space was accessed with a 19-gauge Yueh needle and connected to Vacutainers. The Yueh catheter was advanced, the needle was rem brennon and the temporary catheter was advanced and connected to the Vacutainer. Approximately 1 liters of straw colored fluid was removed. The temporary catheter was removed and sterile dressings were ap plied. FINDINGS: Ultrasound demonstrates a moderate left pleural effusion. Imaging confirms the needle tip within the fluid. IMPRESSION: SUCCESSFUL ULTRASOUND GUIDED THORACENTESIS. Proccedure by Dr. Lawson
== END 2024-10-19 14:15 | disposition home or self-care (01) ==
LOC: SSTAY O 12:20
PROVIDERS: ATTEND Physician Assistant Surgical
DX: J90 Pleural effusion, not elsewhere classified (principal); I25.2 Old myocardial infarction; I25.10 Atherosclerotic heart disease of native coronary artery without angina pectoris; Z79.899 Other long term (current) drug therapy
CPT/HCPCS: 32555; 71045; C1729; Z7610

== ENCOUNTER 2024-11-25 11:29 | Outpatient (CLI) | payer MEDICARE, BC ==
[~2024-11-25 11:29] MED LIST changes: -HYDR-3972 PO; +METF-1203 PO; -METF-436 PO; +METO-395 PO; -METO50TA16 PO
--- NOTE | 2024-11-25 16:05 | CONSULTATION ---
DATE OF CONSULTATION: 11/25/2024 DICTATING PHYSICIAN: Val Ramsey M.S., [facility] [employer] MODIFIED BARIUM SWALLOW STUDY REPORT REFERRING PHYSICIAN: Anuj Marie MD. HISTORY OF PRESENT ILLNESS: The patient is a 74-year-old male and consents to this evaluation. The patient's was present for this evaluation. History obtained from the patient, the patient's , and medical records. The patient has a history of signs and symptoms of dysphagia including coughing on food, liquid, and saliva. He reports that this has been occurring for several years. He had a modified barium swallow study conducted in the past and he was provided dietary recommendations at that time such as limiting dairy intake. The patient recently had a triple bypass and has been attending cardiac rehab. He recently had a choking episode in the evening where he was not able to catch his breath. The patient tends to have a harder time with items such as nuts. CURRENT DIET: In terms of caffeine, the patient has one cup of coffee on a daily basis. He does not utilize tobacco products or drink alcohol. He has chocolate every other day and he has dairy on a daily basis in the form of premiere protein shakes or ice cream. The patient does not avoid any foods at this time and is on a regular texture thin liquid diet. MEDICATIONS: Metoprolol 100 mg b.i.d., tamsulosin 0.4 mg once daily orally, metformin 500 mg b.i.d., aspirin 81 mg once daily orally, latanoprost ophthalmic 0.005% once daily, atorvastatin 40 mg once daily orally, Dorzolamide/timolol 2% two drops daily. PARAMETERS: The patient is seated in a lateral 90-degree view and administered the usual protocol of thin and nectar thick liquids, puree and solid consistencies as well as self-regulated boluses of thin liquids from a cup. RESULTS: In the oral stage of the swallow, oral transit is characterized by mildly reduced lingual strength. There is a mild oral residue following the initial swallow of the boluses. In the pharyngeal stage of the swallow, swallow initiation is within functional limits with the exception of 1/2 of the trials for the 3 mL thin liquid bolus, in which that slipped out of the oral cavity early. Tongue base retraction is mild to moderately reduced. Anterior movement of the posterior pharyngeal wall is observed. Elevation of the hyothyroid complex is accomplishedwith mildly reduced epiglottic inversion. There is a mild pharyngeal residue for the majority of the boluses; however, with the self-regulated bolus of thin liquid from a cup and the 5 mL thin liquid, there is a mild to moderate residue. The patient was not noted to utilize any secondary swallows for the thin or thick boluses. In terms of airway safety, the patient demonstrated with vidal aspiration for 1 out of 2 of the 3 mL thin liquid boluses and he had a spontaneous cough that ejected some of the bolus from the airway, but not the entirety of the bolus. ANTERIOR, POSTERIOR VIEW: In the AP plane, the bolus split symmetrically between the piriform sinuses and there was no proximal movement noted. 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 The patient demonstrated vidal aspiration for 1 out of 2 of the 3 mL thin liquid bolus. DIAGNOSES: R13.12 dysphagia, oropharyngeal phase; R05.9 cough. PATIENT EDUCATION: Immediately following modified barium swallow study, the patient was able to view the results. The patient and his were able to see how the current status of the oral motor and swallowing mechanism decreases his ability to swallow normally. He was educated on taking smaller sips, keeping his head in a neutral head position as he would use a backward head tilting posture to swallow and swallowing twice for liquids. The patient was also educated on a recommendation for swallowing therapy and agreed to participate at this time. RECOMMENDATIONS: * It is recommended that the patient follow the compensatory strategies for swallowing including smaller sips, neutral head position, and double swallows for liquids. * It is recommended that the patient receive swallowing therapy one time weekly for 12 weeks to improve the strength and range of motion of the swallowing musculature to ensure airway safety protection and prevent aspiration. LONG-TERM GOALS: The patient will maintain adequate hydration/nutrition with optimum safety and efficiency of swallow function on p.o. intake with overt signs and symptoms of aspiration decreased to twice weekly. FUNCTIONAL ORAL INTAKE: The FOIS was administered to establish and document a change in the functional eating activities of this patient over time. This is a 7-point scale with 1 indicating no oral intake and totally tube dependent and 7 indicating total oral intake with no restrictions. This patient received a 7, which indicates total oral intake with no restriction. G-CODE: [id number]. PROGNOSIS: Prognosis for the patient is good in terms of family support. Thank you very much for asking me to participate in the care of this kind patient. Should you have any questions regarding this evaluation or recommendations, please do not hesitate to contact me at [phone]. During this examination, 3:45 minutes of fluoroscopy time and 31.45 CAK mGy were utilized. Val Ramsey M.S., [facility] [employer] TID: [id number] RECEIPT: [id number] CORNELL DIAZ
== END 2024-11-25 23:59 | disposition home or self-care (01) ==
LOC: RAD 11:29
PROVIDERS: ATTEND Internal Medicine
DX: R13.12 Dysphagia, oropharyngeal phase (principal); R05.9 Cough, unspecified
CPT/HCPCS: 74230